=== PATIENT | female | born 1945 | race Caucasian/White ===

== ENCOUNTER → 2017-05-27 | Day surgery (SDC) | payer OTHER ==
[~2017-05-27] VITALS: Ht 157.5 cm; Wt 77.4 kg
[~2017-05-27] MED LIST: ASPI-535 PO; BACL10TA PO; BIOF1TAB6 PO; GABA100C14 PO; LOSA50TA6 PO; METF500T4 PO; NEBI10TA2 PO; PANT40TA4 PO; PENT400T2 PO
[2017-05-27 14:02] VITALS: Ht 157.5 cm; Wt 77.4 kg
[2017-05-27 15:05] VITALS: BP 123/73; PULSE 62; RESP 18
--- NOTE | 2017-05-27 18:11 | RADRPT ---
Vent Rate: 65 bpm RR Interval: 0 msec MD Interval: 182 msec QRS Duration: 78 msec QT Interval: 398 msec QTC Interval: 413 msec P-R-T [place]: 29 - 15 - 26 degrees Normal sinus rhythm Low voltage QRS Cannot rule out Anterior infarct , age undetermined Abnormal ECG Electronically Signed By: Lico Bernabe [id number]
== END | disposition home or self-care (01) ==
LOC: GIL 13:10
PROVIDERS: ATTEND Internal Medicine
DX: Z12.11 Encounter for screening for malignant neoplasm of colon (principal); Z53.9 Procedure and treatment not carried out, unspecified reason
CPT/HCPCS: 93005